=== PATIENT | male | born 1960 | race Caucasian/White ===

== ENCOUNTER 2016-11-17 08:30 | Outpatient (RCR) | payer OTHER | END 2016-12-17 11:30 | disposition home or self-care (01) | LOC: PT 08:30 | DX: M75.122 Complete rotator cuff tear or rupture of left shoulder, not specified as traumatic (principal); M25.112 Fistula, left shoulder ==

== ENCOUNTER 2023-01-23 07:31 | Emergency (ER) | payer OTHER ==
[~2023-01-23] VITALS: Wt 79.5 kg
[2023-01-23] MEDS ORDERED: METHOTREXATE2.5 MG PO (07:46)
[2023-01-23] MEDS ORDERED: FOLIC ACID1 MG PO (07:46)
[2023-01-23 08:14] LABS: BASO # 0.04 K/mm3 (0.02-0.10); EOS # 0.04 K/mm3 (0.04-0.40); EOS % 0.3 % (0.0-4.0); HEMATOCRIT 38.3 % (42.0-52.0); HEMOGLOBIN 12.8 g/dL (13.5-18.0); LYMPH# 0.93 K/mm3 (1.50-4.00); MEAN CELL VOLUME 105 fl (78-100); MEAN CORPUSCULAR HEMOGLOBIN 35 pg (27-31); MEAN CORPUSCULAR HGB CONC 33 g/dL (33-37); MEAN PLATELET VOLUME 9.8 fl (7.4-10.4); NEU # 11.81 K/mm3 (1.40-6.50); PLATELET COUNT 345 K/mm3 (130-400); RED BLOOD COUNT 3.66 M/mm3 (4.20-5.60); RED CELL DISTRIBUTION WIDTH 13.9 % (11.5-14.5); WHITE BLOOD COUNT 13.2 K/mm3 (4.8-10.8)
[2023-01-23 08:17] LABS: POTASSIUM 3.9 mmol/L (3.5-5.1)
[2023-01-23 08:18] LABS: CALCIUM 9.9 mg/dL (8.3-10.5)
[2023-01-23 08:19] LABS: TOTAL PROTEIN 7.2 g/dL (6.2-8.1)
[2023-01-23 08:21] LABS: TOTAL BILIRUBIN 0.9 mg/dL (0.2-1.2)
[2023-01-23 10:16] LABS: URINE APPEARANCE CLEAR; URINE BILIRUBIN NEGATIVE (NEGATIVE); URINE BLOOD 250 ery/uL (NEGATIVE); URINE COLOR YELLOW; URINE GLUCOSE NEGATIVE (NEGATIVE); URINE KETONE 1+ (NEGATIVE); URINE LEUKOCYTE ESTERASE NEGATIVE (NEGATIVE); URINE NITRATE NEGATIVE (NEGATIVE); URINE PROTEIN(semi-quant) TRACE (NEGATIVE); URINE UROBILINOGEN 1 mg/dL (NORMAL)
[2023-01-23 10:18] LABS: URINE MUCUS PRESENT (NOT PRESENT)
[2023-01-23 11:30] VITALS: BP 131/78
== END 2023-01-23 11:35 | disposition home or self-care (01) ==
LOC: ED 07:31
PROVIDERS: Nurse Practitioner Family
DX: K57.90 Diverticulosis of intestine, part unspecified, without perforation or abscess without bleeding (principal); D72.829 Elevated white blood cell count, unspecified; Z28.310 Unvaccinated for COVID-19
CPT/HCPCS: J7030; Q9967

== ENCOUNTER 2023-08-01 17:48 | Emergency (ER) | payer OTHER ==
[~2023-08-01] VITALS: Ht 167.6 cm; Wt 85.5 kg
[~2023-08-01 17:48] MED LIST: FOLIC ACID1 MG PO; METHOTREXATE2.5 MG PO
[2023-08-01] MEDS ORDERED: HUMIRA PEN40 MG/0.4 SQ (18:11)
[2023-08-01] MEDS ORDERED: Orphenadrine 60 MG/2ML AMP IM ONE (18:45)
[2023-08-01] MEDS ORDERED: Ketorolac 30 MG/ML VIAL IM ONE (18:45)
[2023-08-01 20:27] VITALS: BP 176/82
== END 2023-08-01 20:29 | disposition home or self-care (01) ==
LOC: ED 17:48
DX: S30.0XXA Contusion of lower back and pelvis, initial encounter (principal); V87.8XXA Person injured in other specified noncollision transport accidents involving motor vehicle (traffic), initial encounter; Y92.410 Unspecified street and highway as the place of occurrence of the external cause
CPT/HCPCS: J1885; J2360

== ENCOUNTER 2023-11-18 06:29 | Emergency (ER) | payer MEDICARE, OTHER ==
[~2023-11-18] VITALS: Ht 167.6 cm; Wt 81.0 kg
[~2023-11-18 06:29] MED LIST changes: +AMOXICILLIN AND1 TA2 PO; +HUMIRA PEN40 MG/0.4 SQ
[2023-11-18 06:59] LABS: HEMATOCRIT 44.1 % (42.0-52.0); HEMOGLOBIN 15.1 g/dL (13.5-18.0); MEAN CELL VOLUME 104 fl (78-100); MEAN CORPUSCULAR HEMOGLOBIN 36 pg (27-31); MEAN CORPUSCULAR HGB CONC 34 g/dL (33-37); MEAN PLATELET VOLUME 9.7 fl (7.4-10.4); PLATELET COUNT 354 K/mm3 (130-400); RED BLOOD COUNT 4.25 M/mm3 (4.20-5.60); RED CELL DISTRIBUTION WIDTH 13.7 % (11.5-14.5)
[2023-11-18] MEDS ORDERED: NS 1,000 ML IV SCH ×2 (07:00→08:45)
[2023-11-18 07:04] LABS: WHITE BLOOD COUNT 36.7 K/mm3 (4.8-10.8)
[2023-11-18 07:09] LABS: CALCIUM 9.3 mg/dL (8.3-10.5)
[2023-11-18 07:13] LABS: TOTAL BILIRUBIN 0.5 mg/dL (0.2-1.2)
[2023-11-18] MEDS ORDERED: Piperacillin/Tazobactam Sodium 4.5 GM in NS 100 ML IV ONE (07:15)
[2023-11-18] MEDS ORDERED: Morphine 4 MG/ML VIAL IV ONE ×2 (07:15→08:45)
[2023-11-18] MEDS ORDERED: Ondansetron 4 MG/2 ML VIAL IV ONE (07:15)
[2023-11-18] MEDS ORDERED: Iohexol 300 - 100 ML VIAL IV ONE (07:33)
[2023-11-18 07:37] LABS: LYMPHOCYTE 5 % (20-51); MONOCYTE 4 % (3-10); NEUTROPHILS 91 % (42-75)
[2023-11-18 10:25] VITALS: BP 141/90
== END 2023-11-18 10:25 | disposition short-term general hospital (02) ==
LOC: ED 06:29
PROVIDERS: Physician Assistant
DX: K52.9 Noninfective gastroenteritis and colitis, unspecified (principal)
CPT/HCPCS: J2270; J2405; J2543; J7030; Q9967